=== PATIENT | male | born 1950 | race Caucasian/White ===

== ENCOUNTER 2016-10-22 14:12 | Emergency (ER) | payer OTHER ==
[2016-10-22 14:30] VITALS: RESP 16
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
[2016-10-22 16:00] VITALS: BP 189/101; PULSE 74; TEMP 97.9; O2SAT 96
== END 2016-10-22 16:00 | disposition home or self-care (01) ==
LOC: EDUNIT#
DX: S16.1XXA Strain of muscle, fascia and tendon at neck level, initial encounter (principal); I10 Essential (primary) hypertension; Z79.82 Long term (current) use of aspirin; V89.2XXA Person injured in unspecified motor-vehicle accident, traffic, initial encounter; Y92.410 Unspecified street and highway as the place of occurrence of the external cause; Y99.8 Other external cause status